=== PATIENT | female | born 1975 | race Two or more races ===

== ENCOUNTER 2019-05-10 14:03 | Observation (INO) | payer BC ==
[~2019-05-10] VITALS: Ht 157.5 cm; Wt 87.1 kg
[~2019-05-10 14:03] MED LIST: None per pt.
[2019-05-10] MEDS ORDERED: LACTATED RINGERS 1,000 ML IV SCH (14:49)
[2019-05-10 14:51] VITALS: BP 117/77
[2019-05-10] MEDS ORDERED: PLEASE ENTER HEIGHT AND WEIGHT MC SCH (15:00)
[2019-05-10] MEDS ORDERED: BUPIVACAINE/PF 0.25% ONE (15:08)
[2019-05-10] MEDS ORDERED: EPINEPHRINE 1 MG/ML, 1ML ONE (15:08)
[2019-05-10] MEDS ORDERED: FLUORESCEIN SODIUM 500 MG/5 ML ONE (15:08)
[2019-05-10 15:14] LABS: HCG UR SG 1.002 (1.003-1.030)
[2019-05-10 15:27] LABS: ANION GAP 6 mmol/L (5-15); CHLORIDE 106 mmol/L (98-107); CREATININE 0.77 mg/dL (0.55-1.02)
[2019-05-10 15:30] LABS: BASOPHILS # (AUTO) 0.04 x10^3/uL (0-0.1); BASOPHILS % (AUTO) 1 % (0-1); EOSINOPHILS # (AUTO) 0.02 x10^3/uL (0-0.4); EOSINOPHILS % (AUTO) 0 % (1-7); LYMPHOCYTES # (AUTO) 1.98 x10^3/uL (1-3.4); LYMPHOCYTES % (AUTO) 38 % (22-44); MD NO; MEAN CORPUSCULAR HGB CONC 32.3 g/dL (32.4-35.8); MEAN CORPUSCULAR VOLUME 80.6 fL (80-100); MONOCYTES # (AUTO) 0.36 x10^3/uL (0.2-0.8); MONOCYTES % (AUTO) 7 % (2-9); NEUTROPHILS # (AUTO) 2.86 x10^3/uL (1.8-6.8); NEUTROPHILS % (AUTO) 54 % (42-75); PLATELET COUNT 346 x10^3/uL (130-400); RED BLOOD COUNT 4.21 x10^6/uL (3.82-5.3); RED CELL DISTRIBUTION WIDTH 15.7 % (9.6-15.2)
[2019-05-10] MEDS ORDERED: MIDAZOLAM 1 MG/ML, 2ML ONE (15:52)
[2019-05-10] MEDS ORDERED: FENTANYL PF 250 MCG/5ML ONE (15:52)
[2019-05-10] MEDS ORDERED: PROPOFOL 50 ML ONE (15:52)
[2019-05-10] MEDS ORDERED: ROCURONIUM 10 MG/ML,10ML ONE (16:26)
[2019-05-10] MEDS ORDERED: SUCCINYLCHOLINE 20 MG/ML, 10ML ONE (16:26)
[2019-05-10] MEDS ORDERED: CEFAZOLIN 1,000 MG ONE (16:26)
[2019-05-10] MEDS ORDERED: DEXAMETHASONE 4 MG/ML, 1ML ONE (17:11)
[2019-05-10] MEDS ORDERED: KETOROLAC 30 MG/1 ML ONE (17:11)
[2019-05-10] MEDS ORDERED: ONDANSETRON 2MG/ML, 2ML ONE (17:11)
[2019-05-10] MEDS ORDERED: ONDANSETRON 2MG/ML, 2ML IV PRN (17:30)
[2019-05-10] MEDS ORDERED: hydrALAzine 20 MG/ML, 1ML IV PRN (17:30)
[2019-05-10] MEDS ORDERED: MEPERIDINE/PF 25MG/ML,1ML IVPush PRN (17:30)
[2019-05-10] MEDS ORDERED: ACETAMINOPHEN 325 MG TABLET PO PRN (17:30)
[2019-05-10] MEDS ORDERED: PROMETHAZINE 25 MG/ML, 1ML IV PRN (17:30)
[2019-05-10] MEDS ORDERED: OXYcodone 5 MG/5 ML ORAL.SOL UDC PO PRN (17:30)
[2019-05-10] MEDS ORDERED: LABETALOL 5MG/ML, 20ML IV PRN (17:30)
[2019-05-10] MEDS ORDERED: HYDROmorphone 2 MG/ML, 1ML IVPush PRN (17:30)
[2019-05-10] MEDS ORDERED: PROPOFOL 10 MG/ML, 20ML ONE ×2 (17:34)
[2019-05-10] MEDS ORDERED: THROMBIN 5,000 UNIT VIAL TP ONE (18:33)
[2019-05-10] MEDS ORDERED: NEOSPORIN OINT, 15GM ONE (19:08)
[2019-05-10] MEDS ORDERED: FENTANYL PF 100 MCG/2ML ONE ×2 (19:11→19:39)
[2019-05-10] MEDS ORDERED: ONDANSETRON 2MG/ML, 2ML IVPush PRN (19:30)
[2019-05-10] MEDS ORDERED: morphine SULFATE 10 MG/ML, 1ML IVPush PRN (19:30)
[2019-05-10] MEDS ORDERED: KETOROLAC 30 MG/1 ML IVPush PRN (19:30)
[2019-05-10] MEDS ORDERED: OXYcodone/APAP 5/325MG TABLET PO PRN (19:30)
[2019-05-10] MEDS ORDERED: ACETAMINOPHEN 650 MG/20.3 ML UDC ONE (19:39)
[2019-05-10] MEDS: FENTANYL PF 100 MCG/2ML IV PRN ×3 (19:40→20:19)
[2019-05-10] MEDS ORDERED: OXYcodone 5 MG/5 ML ORAL.SOL UDC ONE (19:40)
[2019-05-10] MEDS: SIMETHICONE 80 MG CHEW TAB PO SCH (21:04)
[2019-05-10 23:21] VITALS: BP 122/80
[2019-05-11] VITALS (7 sets, daily range): BP systolic 76–121; BP diastolic 48–80
[2019-05-11] MEDS: D5%-LACTATED RINGERS 1,000 ML IV SCH ×4 (00:02→21:12)
[2019-05-11 00:26] LABS: BASOPHILS % (AUTO) 0 % (0-1); EOSINOPHILS % (AUTO) 0 % (1-7); LYMPHOCYTES # (AUTO) 0.51 x10^3/uL (1-3.4); LYMPHOCYTES % (AUTO) 4 % (22-44); MD NO; MEAN CORPUSCULAR HEMOGLOBIN 26.3 pg (27.0-34.8); MEAN CORPUSCULAR HGB CONC 32.7 g/dL (32.4-35.8); MEAN CORPUSCULAR VOLUME 80.4 fL (80-100); MEAN PLATELET VOLUME 7.7 fL (7.4-10.4); MONOCYTES # (AUTO) 0.35 x10^3/uL (0.2-0.8); MONOCYTES % (AUTO) 3 % (2-9); NEUTROPHILS # (AUTO) 11.38 x10^3/uL (1.8-6.8); NEUTROPHILS % (AUTO) 93 % (42-75); PLATELET COUNT 270 x10^3/uL (130-400); RED BLOOD COUNT 3.26 x10^6/uL (3.82-5.3); RED CELL DISTRIBUTION WIDTH 15.1 % (9.6-15.2)
[2019-05-11] MEDS: IBUPROFEN 600 MG TABLET PO SCH ×3 (09:31→21:12)
[2019-05-11] MEDS: SIMETHICONE 80 MG CHEW TAB PO SCH ×3 (09:31→21:12)
[2019-05-12 02:16] VITALS: BP 95/51
[2019-05-12] MEDS: IBUPROFEN 600 MG TABLET PO SCH ×3 (05:39→16:10)
[2019-05-12 06:47] LABS: MEAN CORPUSCULAR HEMOGLOBIN 26.1 pg (27.0-34.8); MEAN CORPUSCULAR HGB CONC 32.5 g/dL (32.4-35.8); MEAN CORPUSCULAR VOLUME 80.4 fL (80-100); PLATELET COUNT 175 x10^3/uL (130-400); RED BLOOD COUNT 2.69 x10^6/uL (3.82-5.3)
[2019-05-12 07:00] VITALS: BP 110/72
[2019-05-12] MEDS: D5%-LACTATED RINGERS 1,000 ML IV SCH ×2 (09:00→17:00)
[2019-05-12] MEDS: SIMETHICONE 80 MG CHEW TAB PO SCH ×2 (09:19→16:10)
[2019-05-12 13:15] VITALS: BP 115/79
[2019-05-12] MEDS ORDERED: OXYC-302 PO (16:36)
== END 2019-05-12 17:15 | disposition home or self-care (01) ==
LOC: OUT 14:03 → 4NE 20:45 → OUT 23:05
PROVIDERS: ADMIT Obstetrics & Gynecology Maternal & Fetal Medicine; ATTEND Obstetrics & Gynecology Maternal & Fetal Medicine
DX: N92.0 Excessive and frequent menstruation with regular cycle (principal); N94.6 Dysmenorrhea, unspecified; D25.9 Leiomyoma of uterus, unspecified
CPT/HCPCS: 36415; 58552; 74018; 80048; 81025; 85014; 85018; 85025; 85027; 88307; 96374; 96375; G0378; J0171; J0330; J0690; J1100; J1885; J2250; J2270; J2405; J2704; J3010; J3490; J7120; J7121